=== PATIENT | female | born 1965 | race Caucasian/White ===

== ENCOUNTER 2018-03-07 11:30 | Day surgery (SDC) | payer OTHER ==
[~2018-03-07 11:30] MED LIST: Acetaminophen TAB* 325 MG PO PRN; Buffered Lidocaine 0.9% SYRIN* 5 ML/SYR SYRINGE INTRADERM ONE; HYDROmorphone INJ1* 1 MG/ML SYRINGE IV PRN; Naloxone* 0.4 MG/ML 1 ML VIAL IV PRN
[2018-03-07] MEDS ORDERED: KETAMINE HCL* 50 MG/ML 10 ML VIAL ONE (12:47)
[2018-03-07] MEDS ORDERED: fentaNYL* 50 MCG/ML 2 ML VIAL (100 MCG VIAL) ONE (12:47)
[2018-03-07] MEDS ORDERED: Midazolam* 1 MG/ML 5 ML VIAL (5 MG) ONE (12:47)
[2018-03-07] MEDS ORDERED: Ondansetron INJ* 2 MG/ML VIAL ONE (12:49)
[2018-03-07] MEDS ORDERED: Lidocaine 2% PF * 5 ML VIAL ONE (12:49)
[2018-03-07] MEDS ORDERED: Propofol* 10 MG/ML 20 ML BTL IV PUSH ONE (12:49)
[2018-03-07 16:23] VITALS: BP 123/85
--- NOTE | 2018-03-08 04:16 | PRO ---
CC: Halima Mahmood M.D. * DATE OF PROCEDURE: 03/07/18 [facility] PROCEDURE: EGD. REFERRING PROVIDER: Halima Mahmood MD INDICATIONS: Chronic intermittent GERD and dysphagia. The patient believes around 10 years ago she had an esophageal ring that was dilated. She describes intermittent food and pill dysphagia. MEDICATIONS GIVEN: By Anesthesia. PROCEDURE IN DETAIL: Full disclosure of risks were reviewed with the patient as detailed on the consent form. The patient was placed in the left lateral decubitus position and monitored with continuous pulse oximetry, interval blood pressure monitoring, and direct observation. A bite-block was placed between the teeth. An Olympus gastroscope was then inserted into the patient's mouth and advanced down the esophagus, into the stomach and into the distal duodenum. Findings are described below. FINDINGS: Esophagus was notable for linear furrowing and trachealization beginning in mid esophagus and extending distally. Biopsies obtained from proximal and mid esophagus to rule out eosinophilic esophagitis. In the distal esophagus, there was severe grade D erosive esophagitis. Mucosa was quite friable. There was an inflamed-appearing nodule within the area of esophagitis at the GE junction. This was located around 30 cm. Biopsies obtained from this nodule. Scope was then advanced into the stomach. There was a 4-cm hiatal hernia with the top of the gastric folds occurring at 34 cm. This stomach was examined in forward and retroflexed views. There were no erosions, ulcers or significant erythema. The scope was then advanced into the duodenum and examined to the fourth portion. The duodenum was normal in appearance without any erosions or ulcers. The scope was then withdrawn from the patient. The patient tolerated the procedure well. Colonoscopy was then performed. See separate dictated report. IMPRESSION: 1. Severe esophagitis. 2. Inflamed-appearing nodule in the distal esophagus in the area of esophagitis. Biopsies obtained to evaluate for inflammation versus dysplasia. 3. Trachealization and linear furrowing noted in mid esophagus. Biopsies obtained. 4. Hiatal hernia. FOLLOWUP: 1. Await pathology. 2. Start omeprazole 40 mg twice daily x8 weeks. 3. Start Carafate 1 g suspension 4 times a day for 2 weeks. 4. Repeat EGD in 8 weeks to reassess and ensure that esophagitis is healed. Will also reassess esophageal nodule and evaluate for Hussein esophagus at that time. 5. Avoid NSAIDs. Colonoscopy was then performed. Please see separate note for this procedure. Thank you very much for this referral. [id number]/[facility] #: [id number] FAISAL
--- NOTE | 2018-03-08 13:53 | PRO ---
CC: Halima Mahmood MD * DATE OF PROCEDURE: 03/07/[address] [facility] PROCEDURE: Colonoscopy. REFERRING PROVIDER: Halima Mahmood MD. INDICATION: Colorectal cancer screening. No family history of colon cancer or colon polyps. The patient has chronic constipation and has been using MiraLAX regularly. MEDICATIONS: Given by Anesthesia. PROCEDURE IN DETAIL: Full disclosure of risks were reviewed with patient as detailed on the consent form. The patient was placed in the left lateral decubitus position and monitored with continuous pulse oximetry, capnography, interval blood pressure monitoring and direct observation. After anorectal examination was performed, the colonoscope was inserted into the rectum and advanced under direct vision to the terminal ileum. The cecum was fully inflated allowing a complete view including the medial wall between the IC valve and appendicial orifice. Quality of prep was good. A careful inspection was made as the colonoscope was withdrawn. A retroflexed view of the rectum was performed. Findings and interventions are described below. FINDINGS: Anorectal exam was unremarkable. The procedure was a bit difficult due to a loopy left colon with a tortuous splenic flexure. Abdominal pressure was used to help traverse the flexure and advance the scope forward. The scope was able to reach the cecum and then terminal ileum was intubated. Terminal ileum was normal in appearance. Scope was then withdrawn into the cecum and then throughout the remainder of the colon. Close attention was paid to the colonic mucosa. There was no evidence of polyps, masses, AVMs or diverticular disease. Retroflexion was performed in the rectum and was notable for hypertrophied anal papillae and small internal hemorrhoids. Scope was then withdrawn from the patient. The patient tolerated the procedure well and was recovered in the GI recovery area. IMPRESSION: 1. Complete colonoscopy of the terminal ileum. 2. Hypertrophied anal papillae and small internal hemorrhoids. FOLLOWUP: 1. Continue MiraLAX on a daily or p.r.n. basis for constipation management. The patient can followup in GI clinic to discuss further. 2. We will need repeat colonoscopy in 10 years for colon cancer screening in this otherwise average risk patient. Thank you very much for this referral. [id number]/[facility] #: [id number] FAISAL
== END 2018-03-07 15:45 | disposition home or self-care (01) ==
LOC: OR 11:30
PROVIDERS: ATTEND Internal Medicine Gastroenterology
DX: Z12.11 Encounter for screening for malignant neoplasm of colon (principal); K21.0 Gastro-esophageal reflux disease with esophagitis; E03.9 Hypothyroidism, unspecified; R13.14 Dysphagia, pharyngoesophageal phase; K59.00 Constipation, unspecified; Z92.83 Personal history of failed moderate sedation
CPT/HCPCS: 88305; 88312; J2250; J2405; J2704; J3010

== ENCOUNTER 2018-05-07 10:30 | Day surgery (SDC) | payer OTHER ==
[~2018-05-07 10:30] MED LIST changes: -Acetaminophen TAB* 325 MG PO PRN; -Buffered Lidocaine 0.9% SYRIN* 5 ML/SYR SYRINGE INTRADERM ONE; +Buffered Lidocaine 1% SYRIN* 1 ML/SYRINGE INTRADERM ONE; -HYDROmorphone INJ1* 1 MG/ML SYRINGE IV PRN; +Lactated Ringers 1000 ML Bag* 1,000 ML IV SCH; -Naloxone* 0.4 MG/ML 1 ML VIAL IV PRN
[2018-05-07] MEDS ORDERED: Propofol* 10 MG/ML 20 ML BTL ONE (11:25)
[2018-05-07] MEDS ORDERED: Naloxone* 0.4 MG/ML 1 ML VIAL IV PRN (12:02)
[2018-05-07] MEDS ORDERED: Ondansetron INJ* 2 MG/ML VIAL IV PRN (12:02)
[2018-05-07 13:05] VITALS: BP 127/86
--- NOTE | 2018-05-07 19:31 | PRO ---
CC: Halima Mahmood MD * DATE OF PROCEDURE: 05/07/18 [facility] PROCEDURE: EGD. REFERRING PROVIDER: Halima Mahmood MD INDICATIONS: Dysphagia. EGD in January 2018 demonstrated severe esophagitis. Patient was placed on PPI b.i.d. The patient reports that her heartburn symptoms are largely resolved. She says that she is not having any ongoing dysphagia symptoms, although her diet is limited to avoid things that she thinks might get stuck. MEDICATIONS: Given by Anesthesia. DESCRIPTION OF PROCEDURE: Full disclosure of the risks was reviewed with the patient as detailed on the consent form. The patient was placed in the left lateral decubitus position and monitored with continuous pulse oximetry, interval blood pressure monitoring, capnography, and direct observation. A bite -block was placed between the teeth. An Olympus gastroscope was then inserted into the patient's mouth and advanced down the esophagus, into the stomach, and into the distal duodenum. The findings are described below. FINDINGS: There was a Schatzki ring noted in the distal esophagus. Directly above this ring was a GE junction nodule. This nearly pedunculated nodule was seen on last endoscopy, although at that time it was within area of esophagitis. Prior biopsies of the nodule demonstrated only inflammatory changes without dysplasia. The severe esophagitis seen on prior endoscopy is now resolved. The scope was then advanced into the stomach. There was a 3 cm hiatal hernia (top of the gastric fold measuring at 35 cm). Gastric mucosa was examined in the forward and retroflexed views. The mucosa was normal in appearance. Scope was then advanced into the duodenum. Duodenum was normal in appearance to the third portion. Scope was then withdrawn back to the distal esophagus. Balloon dilation was performed using CRE TTS balloon dilator (15-18 mm). Dilation was started by inflating balloon to 15-mm and holding for 30 seconds. The balloon was then taken down, and the ring was reexamined. There was no evidence of tear or heme. The balloon was then inflated to 16.5 mm and held for 30 seconds. Balloon was then taken down, and the ring was reexamined without evidence of tear or heme. Finally, the balloon was dilated to approximately 17 mm as this was the point where the tech reported significant resistance with attempt to inflate the balloon further. The balloon was held for 30 seconds and then taken down. The ring was again re-examined with no evidence of heme or tear identified. Decision was made not to dilate further as there was significant resistance noted with the dilation to 17 mm. Balloon dilator was removed. Next, several biopsy bites were taken in the area of the Schatzki's ring to help disrupt it. Attention was then turned to the Z-line, which occurred at 32 cm. The Z-line was irregular. Biopsies were taken in four quadrants to evaluate for possible underlying Hussein's esophagus. Biopsies were also obtained from the GE junction nodule. Scope was then withdrawn from the patient. The patient tolerated the procedure well and was recovered in the GI recovery area. IMPRESSION: 1. Severe esophagitis is now resolved. 2. Irregular Z-line, biopsied to evaluate for Hussein's. 3. GE junction nodule, biopsied. 4. Schatzki ring dilated sequentially from 15 mm to 17 mm. Significant resistance was felt with dilation to 17 mm, although no heme or tear was noted at this size. Decision made to hold on further dilation attempts for now. Can consider dilating again in the future if the patient's dysphagia symptoms are only partially resolved or are unchanged after today's procedure. FOLLOWUP: 1. Await pathology. 2. Repeat EGD to be determined based on pathology results and the patient's symptoms. 3. Continue PPI b.i.d. 4. We will schedule followup clinic visit to reassess symptoms. Thank you very much for this referral. [id number]/[facility] #: [id number] FAISAL
== END 2018-05-07 13:26 | disposition home or self-care (01) ==
LOC: OR 10:30
PROVIDERS: ATTEND Internal Medicine Gastroenterology
DX: K21.9 Gastro-esophageal reflux disease without esophagitis (principal); R13.10 Dysphagia, unspecified; K44.9 Diaphragmatic hernia without obstruction or gangrene
CPT/HCPCS: 88305; J2704

== ENCOUNTER → 2018-09-03 10:18 | Day surgery (SDC) | payer OTHER ==
[~2018-09-03 10:18] MED LIST changes: +Dexamethasone IV* 4 MG/ML 1 ML (4 MG) ONE; +Glycopyrrolate IV* 0.2 MG/ML 1 ML VIAL ONE; +Midazolam* 1 MG/ML 5 ML VIAL (5 MG) ONE; +Naloxone* 0.4 MG/ML 1 ML VIAL IV PRN; +Ondansetron INJ* 2 MG/ML VIAL IV PRN; +Ondansetron INJ* 2 MG/ML VIAL ONE; +Propofol* 10 MG/ML 20 ML BTL ONE; +Rocuronium* 10 MG/ML VIAL ONE; +fentaNYL* 50 MCG/ML 2 ML VIAL (100 MCG VIAL) IV PRN; +fentaNYL* 50 MCG/ML 2 ML VIAL (100 MCG VIAL) ONE; +oxyCODONE/Acetamin 5/325 MG* TAB PO PRN
[2018-09-03 15:55] VITALS: BP 116/75
--- NOTE | 2018-09-03 20:49 | PRO ---
CC: Halima Mahmood MD * DATE OF PROCEDURE: 09/03/18 PROCEDURE: EGD with biopsy. REFERRING PROVIDER: Halima Mahmood MD INDICATION: The patient has a history of GERD complicated by erosive esophagitis as well as a Schatzki's ring, status post dilation. Most recent EGD in April 2018 demonstrated resolution of previously seen severe esophagitis. There was an irregular Z-line with biopsies confirming focal intestinal metaplasia without dysplasia. There was a Schatzki's ring that was dilated to 17 mm. The patient says that her dysphagia has improved, although she continues to have some pill dysphagia. She was on omeprazole 40 mg twice daily and Pepcid 10 to 20 mg at bedtime started. Scheduled for repeat EGD given some residual dysphagia symptoms. MEDICATIONS GIVEN: By Anesthesia. DESCRIPTION OF PROCEDURE: Full disclosure of the risks was reviewed with the patient as detailed on the consent form. The patient was placed in the left lateral decubitus position and monitored with continuous pulse oximetry, capnography, interval blood pressure monitoring, and direct observation. A bite - block was placed between the patient's teeth. An adult gastroscope was then inserted into the patient's mouth and advanced down the esophagus, into the stomach and into the distal duodenum. Findings and interventions are described below. FINDINGS: Esophagus was tubular structure. There were no rings or strictures noted. Distal esophagus was widely patent. There was an irregular Z-line as previously identified. No evidence of esophagitis. The scope was easily advanced into the stomach. The stomach was examined in the forward and retroflexed views. The gastric mucosa was notable for mild erythema in the antrum. Scope was then advanced into the duodenum to at least the third portion. The duodenum was normal in appearance. The scope was then withdrawn back into the esophagus. Empiric dilation with a CRE TTS balloon dilator was performed. The balloon was dilated to 18 mm and held for 45 seconds. The balloon was then taken down and no evidence of tear or heme was noted in the distal esophagus. The balloon dilator was then withdrawn. Biopsies were again obtained from 4 quadrants of the irregular Z-line. The scope was then withdrawn from the patient. The patient tolerated the procedure well and was recovered in the GI recovery area. IMPRESSION: 1. Complete upper endoscopy to distal duodenum. 2. Irregular Z-line, biopsied. 3. No Schatzki's ring seen on today's exam. Empiric dilation with 18 mm balloon was performed. 4. Mild gastric atrial erythema. FOLLOWUP: 1. Await pathology. 2. Continue omeprazole 40 mg twice daily and continue Pepcid 20 mg at bedtime. 3. Follow up in GI clinic at the end of the month, already scheduled. Thank you very much for the referral. [id number]/[facility] #: [id number] FAISAL
== END | disposition home or self-care (01) ==
LOC: ENDO 10:18
PROVIDERS: ATTEND Internal Medicine Gastroenterology
DX: K21.0 Gastro-esophageal reflux disease with esophagitis (principal); K22.70 Barrett's esophagus without dysplasia; R13.10 Dysphagia, unspecified; K31.89 Other diseases of stomach and duodenum; K59.00 Constipation, unspecified; E03.9 Hypothyroidism, unspecified; F90.9 Attention-deficit hyperactivity disorder, unspecified type; Z88.2 Allergy status to sulfonamides; Z88.8 Allergy status to other drugs, medicaments and biological substances; Z91.09 Other allergy status, other than to drugs and biological substances; Z91.030 Bee allergy status; Z79.890 Hormone replacement therapy; Z79.899 Other long term (current) drug therapy
CPT/HCPCS: 88305; J1100; J2250; J2405; J2704; J3010